=== PATIENT | male | born 1995 | race Two or more races ===

== ENCOUNTER 2017-06-28 00:07 | Observation (INO) | payer MEDICAID ==
[~2017-06-28] VITALS: Ht 160 cm; Wt 69.8 kg
[~2017-06-28 00:07] MED LIST: CLIN300C8 PO; DOCU-131 PO; OXYC1TAB7 PO
[2017-06-28 00:54] LABS: BASOPHILS # (AUTO) 0.06 x10^3/uL (0-0.1); BASOPHILS % (AUTO) 1 % (0-1); EOSINOPHILS # (AUTO) 0.11 x10^3/uL (0-0.4); EOSINOPHILS % (AUTO) 1 % (1-7); LYMPHOCYTES # (AUTO) 2.41 x10^3/uL (1-3.4); LYMPHOCYTES % (AUTO) 28 % (22-44); MD NO; MEAN CORPUSCULAR VOLUME 91.1 fL (81-97); MEAN PLATELET VOLUME 8.9 fL (7.4-10.4); MONOCYTES # (AUTO) 0.73 x10^3/uL (0.2-0.8); MONOCYTES % (AUTO) 8 % (2-9); NEUTROPHILS # (AUTO) 5.37 x10^3/uL (1.8-6.8); NEUTROPHILS % (AUTO) 62 % (42-75); PLATELET COUNT 308 x10^3/uL (130-400); RED BLOOD COUNT 4.72 x10^6/uL (4.38-5.82); RED CELL DISTRIBUTION WIDTH 14.3 % (9.4-14.8)
[2017-06-28 01:03] LABS: ANION GAP 8 mmol/L (5-15); CALCIUM 8.9 mg/dL (8.5-10.1); CHLORIDE 104 mmol/L (98-107); CREATININE 1.06 mg/dL (0.7-1.3); SALICYLATE LEVEL < 1.7 mg/dL (2.8-20.0)
[2017-06-28 01:04] LABS: ACETAMINOPHEN < 2 mcg/mL (10-30)
[2017-06-28 01:10] LABS: AMPHETAMINE SCREEN, URINE Negative (Negative); BARBITURATE SCREEN, URINE Negative (Negative); BENZODIAZEPINE SCREEN, URINE Negative (Negative); CANNABINOID SCREEN, URINE Negative (Negative); COCAINE SCREEN, URINE Negative (Negative); METHADONE SCREEN, URINE Negative (Negative); OPIATE SCREEN, URINE Negative (Negative)
[2017-06-28] MEDS ORDERED: ACETAMINOPHEN 325 MG TABLET PO PRN (04:00)
[2017-06-28] MEDS ORDERED: ONDANSETRON 2MG/ML, 2ML IVPush PRN (04:00)
[2017-06-28 04:02] VITALS: BP 122/72
[2017-06-28 08:30] VITALS: BP 117/77
[2017-06-28 14:10] VITALS: BP 114/75
[2017-06-28 20:18] VITALS: BP 124/81
[2017-06-29 02:52] VITALS: BP 109/70
[2017-06-29 08:58] VITALS: BP 109/69
[2017-06-29 15:42] VITALS: BP 111/66
[2017-06-29 19:18] VITALS: BP 118/73
[2017-06-30 02:03] VITALS: BP 115/71
[2017-06-30 07:15] VITALS: BP 120/60
[2017-06-30 13:20] VITALS: BP 127/81
[2017-06-30 20:00] VITALS: BP 129/80
[2017-07-01 01:39] VITALS: BP 100/61
[2017-07-01 06:50] VITALS: BP 108/72
[2017-07-01 14:59] VITALS: BP 126/88
[2017-07-01 19:26] VITALS: BP 108/72
[2017-07-02 02:14] VITALS: BP 96/61
[2017-07-02 08:00] VITALS: BP 111/74
== END 2017-07-02 13:52 | disposition home or self-care (01) ==
LOC: ED 01:12 → EDIP 02:03 → 4EST 02:10 → OBSVTOIN 18:36 → INTOOBSV 18:36 → 4EST 22:14
PROVIDERS: ADMIT Hospitalist; ATTEND Hospitalist
DX: R62.7 Adult failure to thrive (principal); Q90.9 Down syndrome, unspecified; I10 Essential (primary) hypertension
CPT/HCPCS: 36415; 80048; 80307; 80329; 82040; 85025; 92523; 93970; 99285; G0378; G0480

== ENCOUNTER 2018-06-19 20:20 | Inpatient (IN) | payer MEDICAID ==
[~2018-06-19] VITALS: Ht 162.6 cm; Wt 79.3 kg
--- NOTE | 2018-06-19 20:45 | NUR ---
PT HERE FOR CELULITIS OF L LEG, INNER THIGH RADIATING TO CALF. RED AND PAINFUL TO TOUCH, NO WEEPING NOTED, AT BEDSIDE, US PERFORMED. SAFETY MEASURES IN PLACE, CALL LIGHT IN REACH
[2018-06-19 21:26] LABS: MEAN CORPUSCULAR HEMOGLOBIN 32.8 pg (27.5-34.5); MEAN CORPUSCULAR HGB CONC 34.3 g/dL (33.2-36.2); MEAN CORPUSCULAR VOLUME 95.5 fL (81-97); MEAN PLATELET VOLUME 8.2 fL (7.4-10.4); PLATELET COUNT 282 x10^3/uL (130-400); RED BLOOD COUNT 4.24 x10^6/uL (4.38-5.82); RED CELL DISTRIBUTION WIDTH 13.4 % (9.4-14.8)
[2018-06-19] MEDS ORDERED: VANCOMYCIN 1,500 MG in SODIUM CHLORIDE 0.9% 250 ML IV ONE (21:30)
[2018-06-19] MEDS ORDERED: AMPICILLIN/SULBACTAM 3 GM in SODIUM CHLORIDE 0.9% 100 ML IV ONE (21:30)
[2018-06-19] MEDS ORDERED: VANCOMYCIN PER PHARMACY MC PRN (21:30)
[2018-06-19 21:38] LABS: ALANINE AMINOTRANSFERASE 18 U/L (12-78); ALBUMIN 3.4 g/dL (3.4-5.0); ANION GAP 9 mmol/L (5-15); CALCIUM 8.6 mg/dL (8.5-10.1); CHLORIDE 102 mmol/L (98-107); CREATININE 0.98 mg/dL (0.7-1.3)
[2018-06-19 21:39] LABS: MD YES
[2018-06-19 21:40] LABS: ALKALINE PHOSPHATASE 58 U/L (45-117); BILIRUBIN,TOTAL 0.7 mg/dL (0.2-1.0); TOTAL PROTEIN 7.9 g/dL (6.4-8.2)
[2018-06-19 21:41] LABS: <PLATELET ESTIMATE> ADEQUATE; <PLT MORPHOLOGY> NORMAL PLT MORPH; <RBC MORPHOLOGY> NORMAL; BAND#(MANUAL) 0.41 x10^3/uL; BANDS%(MANUAL) 3 % (0-7); LYMPH#(MANUAL) 2.97 x10^3/uL (1-3.4); LYMPHS% (MANUAL) 22 % (22-44); MONOS#(MANUAL) 1.22 x10^3/uL (0.3-2.7); MONOS% (MANUAL) 9 % (2-9); REACTIVE LYMPHS # (MANUAL) 0.14 x10^3/uL (0-0); REACTIVE LYMPHS % (MANUAL) 1 % (0-0); SEG#(MANUAL) 8.78 x10^3/uL (1.8-6.8); SEGS% (MANUAL) 65 % (42-75)
--- NOTE | 2018-06-19 21:45 | NUR ---
PT RESTING QUIETLY, MOTHER AT BEDSIDE, NO NEW COMPLAINTS
[2018-06-19] MEDS ORDERED: MORPHINE SULFATE 4 MG/ML, 1ML IVPush PRN (22:00)
--- NOTE | 2018-06-19 23:05 | NUR ---
PT C/O OF PAIN, MEDICATED PER eMAR, VANCOMYCIN RUNNING
[2018-06-19] MEDS ORDERED: MORPHINE SULFATE 4 MG/ML, 1ML ONE (23:10)
--- NOTE | 2018-06-19 23:20 | NUR ---
REPORT GIVEN TO SANTOSH CHERY
[2018-06-20] MEDS ORDERED: ENALAPRILAT 1.25 MG/ML, 2ML IVPush PRN (00:30)
[2018-06-20] MEDS ORDERED: ACETAMINOPHEN 325 MG TABLET PO PRN (00:30)
[2018-06-20] MEDS ORDERED: IBUPROFEN 600 MG TABLET PO PRN (00:30)
[2018-06-20] MEDS ORDERED: OXYcodone IR 5MG TABLET PO PRN (00:30)
[2018-06-20] MEDS ORDERED: VANCOMYCIN PER PHARMACY MC PRN (00:30)
[2018-06-20] MEDS ORDERED: DIPHENHYDRAMINE 25 MG CAPSULE PO PRN (00:30)
[2018-06-20] MEDS: SODIUM CHLORIDE 0.9% 1,000 ML IV SCH ×3 (01:00→16:38)
[2018-06-20] MEDS ORDERED: IBUPROFEN 800 MG TABLET PO PRN (01:00)
[2018-06-20] MEDS ORDERED: PHARMACOKINETIC MONITORING MC PRN (01:00)
[2018-06-20] MEDS ORDERED: SODIUM CHLORIDE 0.9% 1,000ML IVBOLUS ONE (01:00)
[2018-06-20 01:47] VITALS: BP 102/58
[2018-06-20 05:06] LABS: MEAN CORPUSCULAR HEMOGLOBIN 32.9 pg (27.5-34.5); MEAN CORPUSCULAR HGB CONC 34.3 g/dL (33.2-36.2); MEAN CORPUSCULAR VOLUME 95.9 fL (81-97); MEAN PLATELET VOLUME 8.6 fL (7.4-10.4); PLATELET COUNT 254 x10^3/uL (130-400); RED BLOOD COUNT 3.69 x10^6/uL (4.38-5.82); RED CELL DISTRIBUTION WIDTH 13.4 % (9.4-14.8)
[2018-06-20 05:17] LABS: ANION GAP 7 mmol/L (5-15); CALCIUM 8.2 mg/dL (8.5-10.1); CHLORIDE 103 mmol/L (98-107); CREATININE 1.04 mg/dL (0.7-1.3)
[2018-06-20] MEDS: AMPICILLIN/SULBACTAM 3 GM in SODIUM CHLORIDE 0.9% 100 ML IV SCH ×3 (05:29→22:05)
[2018-06-20 05:56] LABS: BASOPHILS # (AUTO) 0.03 x10^3/uL (0-0.1); BASOPHILS % (AUTO) 0 % (0-1); EOSINOPHILS # (AUTO) 0.04 x10^3/uL (0-0.4); EOSINOPHILS % (AUTO) 0 % (1-7); LYMPHOCYTES # (AUTO) 2.24 x10^3/uL (1-3.4); LYMPHOCYTES % (AUTO) 18 % (22-44); MD SCAN; MONOCYTES # (AUTO) 1.91 x10^3/uL (0.2-0.8); MONOCYTES % (AUTO) 15 % (2-9); NEUTROPHILS # (AUTO) 8.33 x10^3/uL (1.8-6.8); NEUTROPHILS % (AUTO) 66 % (42-75)
[2018-06-20 08:15] VITALS: BP 114/74
[2018-06-20] MEDS ORDERED: DIVA250T14 PO (08:51)
[2018-06-20] MEDS: SENNA/DOCUSATE TABLET PO SCH (08:59)
[2018-06-20] MEDS: ENOXAPARIN 40 MG/0.4 ML SQ SCH (08:59)
[2018-06-20 09:12] LABS: MICROSCOPIC NOT IND
[2018-06-20 09:17] LABS: CULTURE INDICATED? NO
[2018-06-20] MEDS: VANCOMYCIN 1,500 MG in SODIUM CHLORIDE 0.9% 250 ML IV SCH ×2 (11:34→23:30)
[2018-06-20 14:10] VITALS: BP 115/68
[2018-06-20 21:08] VITALS: BP 114/75
[2018-06-20] MEDS: DIVALPROEX 250 MG TAB.ER.24H PO SCH (22:04)
[2018-06-21 01:31] VITALS: BP 98/61
[2018-06-21 05:19] LABS: MEAN CORPUSCULAR HEMOGLOBIN 33.5 pg (27.5-34.5); MEAN CORPUSCULAR HGB CONC 35.1 g/dL (33.2-36.2); MEAN CORPUSCULAR VOLUME 95.5 fL (81-97); MEAN PLATELET VOLUME 8.6 fL (7.4-10.4); PLATELET COUNT 217 x10^3/uL (130-400); RED BLOOD COUNT 3.32 x10^6/uL (4.38-5.82); RED CELL DISTRIBUTION WIDTH 13.6 % (9.4-14.8)
[2018-06-21 05:30] LABS: CHLORIDE 109 mmol/L (98-107)
[2018-06-21] MEDS: SODIUM CHLORIDE 0.9% 1,000 ML IV SCH (05:34)
[2018-06-21] MEDS: AMPICILLIN/SULBACTAM 3 GM in SODIUM CHLORIDE 0.9% 100 ML IV SCH ×2 (05:34→16:38)
[2018-06-21 05:36] LABS: ANION GAP 7 mmol/L (5-15); CALCIUM 8.4 mg/dL (8.5-10.1); CREATININE 0.86 mg/dL (0.7-1.3)
[2018-06-21 05:52] LABS: BASOPHILS # (AUTO) 0.04 x10^3/uL (0-0.1); BASOPHILS % (AUTO) 0 % (0-1); EOSINOPHILS # (AUTO) 0.03 x10^3/uL (0-0.4); EOSINOPHILS % (AUTO) 0 % (1-7); LYMPHOCYTES # (AUTO) 1.88 x10^3/uL (1-3.4); LYMPHOCYTES % (AUTO) 18 % (22-44); MD SCAN; MONOCYTES # (AUTO) 1.65 x10^3/uL (0.2-0.8); MONOCYTES % (AUTO) 16 % (2-9); NEUTROPHILS # (AUTO) 6.95 x10^3/uL (1.8-6.8); NEUTROPHILS % (AUTO) 66 % (42-75)
[2018-06-21 07:06] VITALS: BP 104/69
[2018-06-21] MEDS: SENNA/DOCUSATE TABLET PO SCH (10:10)
[2018-06-21] MEDS: ENOXAPARIN 40 MG/0.4 ML SQ SCH (10:11)
[2018-06-21] MEDS: VANCOMYCIN 1,500 MG in SODIUM CHLORIDE 0.9% 250 ML IV SCH (11:35)
[2018-06-21 13:49] VITALS: BP 119/78
[2018-06-21] MEDS: DIVALPROEX 250 MG TAB.ER.24H PO SCH (20:59)
[2018-06-21] MEDS: VANCOMYCIN 1,200 MG in SODIUM CHLORIDE 0.9% 250 ML IV SCH (20:59)
[2018-06-21 21:00] VITALS: BP 118/75
[2018-06-22] MEDS: AMPICILLIN/SULBACTAM 3 GM in SODIUM CHLORIDE 0.9% 100 ML IV SCH ×3 (00:25→22:56)
[2018-06-22] MEDS: SODIUM CHLORIDE 0.9% 1,000 ML IV SCH (00:25)
[2018-06-22 03:47] VITALS: BP 126/86
[2018-06-22] MEDS: VANCOMYCIN 1,200 MG in SODIUM CHLORIDE 0.9% 250 ML IV SCH ×3 (04:36→20:30)
[2018-06-22 05:29] LABS: MEAN CORPUSCULAR HEMOGLOBIN 32.4 pg (27.5-34.5); MEAN CORPUSCULAR HGB CONC 33.7 g/dL (33.2-36.2); MEAN CORPUSCULAR VOLUME 96.2 fL (81-97); MEAN PLATELET VOLUME 8.8 fL (7.4-10.4); PLATELET COUNT 266 x10^3/uL (130-400); RED CELL DISTRIBUTION WIDTH 13.9 % (9.4-14.8)
[2018-06-22 05:31] LABS: ANION GAP 6 mmol/L (5-15); CALCIUM 8.3 mg/dL (8.5-10.1); CHLORIDE 109 mmol/L (98-107)
[2018-06-22 05:59] LABS: BASOPHILS # (AUTO) 0.08 x10^3/uL (0-0.1); BASOPHILS % (AUTO) 1 % (0-1); EOSINOPHILS # (AUTO) 0.13 x10^3/uL (0-0.4); EOSINOPHILS % (AUTO) 2 % (1-7); LYMPHOCYTES # (AUTO) 1.36 x10^3/uL (1-3.4); LYMPHOCYTES % (AUTO) 16 % (22-44); MD SCAN; MONOCYTES # (AUTO) 1.03 x10^3/uL (0.2-0.8); MONOCYTES % (AUTO) 12 % (2-9); NEUTROPHILS # (AUTO) 6.06 x10^3/uL (1.8-6.8); NEUTROPHILS % (AUTO) 70 % (42-75)
[2018-06-22 08:30] VITALS: BP 119/82
[2018-06-22] MEDS ORDERED: VANCOMYCIN PER PHARMACY MC PRN (08:30)
[2018-06-22] MEDS ORDERED: AMPICILLIN/SULBACTAM 3 GM in SODIUM CHLORIDE 0.9% 100 ML IV SCH (08:30)
[2018-06-22] MEDS ORDERED: SULFAMETH./TRIMETHOPRIM DS 800MG/160MG TABLET PO SCH (09:00)
[2018-06-22] MEDS ORDERED: AMOXICILLIN/CLAV 875-125MG TABLET PO SCH (09:00)
[2018-06-22] MEDS: ENOXAPARIN 40 MG/0.4 ML SQ SCH (10:38)
[2018-06-22] MEDS: SENNA/DOCUSATE TABLET PO SCH (10:46)
[2018-06-22 13:54] VITALS: BP 126/67
[2018-06-22] MEDS ORDERED: PHARMACOKINETIC MONITORING MC PRN (14:00)
[2018-06-22] MEDS ORDERED: VANCOMYCIN 1,200 MG in SODIUM CHLORIDE 0.9% 250 ML IV SCH (16:30)
[2018-06-22 19:51] VITALS: BP 132/92
[2018-06-22] MEDS: DIVALPROEX 250 MG TAB.ER.24H PO SCH (20:30)
[2018-06-23 01:39] VITALS: BP 116/74
[2018-06-23] MEDS: AMPICILLIN/SULBACTAM 3 GM in SODIUM CHLORIDE 0.9% 100 ML IV SCH (04:32)
[2018-06-23 05:45] LABS: ANION GAP 5 mmol/L (5-15); CALCIUM 8.7 mg/dL (8.5-10.1); CHLORIDE 109 mmol/L (98-107); CREATININE 0.81 mg/dL (0.7-1.3)
[2018-06-23 05:56] LABS: VANCOMYCIN,TROUGH 15.7 mcg/mL (5.0-10.0)
[2018-06-23] MEDS: VANCOMYCIN 1,200 MG in SODIUM CHLORIDE 0.9% 250 ML IV SCH ×2 (06:05→13:15)
[2018-06-23 07:11] LABS: BASOPHILS # (AUTO) 0.05 x10^3/uL (0-0.1); BASOPHILS % (AUTO) 1 % (0-1); EOSINOPHILS # (AUTO) 0.23 x10^3/uL (0-0.4); EOSINOPHILS % (AUTO) 3 % (1-7); LYMPHOCYTES # (AUTO) 2.02 x10^3/uL (1-3.4); LYMPHOCYTES % (AUTO) 26 % (22-44); MD NO; MEAN CORPUSCULAR HEMOGLOBIN 32.5 pg (27.5-34.5); MEAN CORPUSCULAR HGB CONC 33.6 g/dL (33.2-36.2); MEAN CORPUSCULAR VOLUME 96.6 fL (81-97); MEAN PLATELET VOLUME 8.9 fL (7.4-10.4); MONOCYTES # (AUTO) 0.99 x10^3/uL (0.2-0.8); MONOCYTES % (AUTO) 13 % (2-9); NEUTROPHILS # (AUTO) 4.54 x10^3/uL (1.8-6.8); NEUTROPHILS % (AUTO) 58 % (42-75); PLATELET COUNT 296 x10^3/uL (130-400); RED BLOOD COUNT 3.51 x10^6/uL (4.38-5.82); RED CELL DISTRIBUTION WIDTH 13.6 % (9.4-14.8)
[2018-06-23 09:10] VITALS: BP 116/78
[2018-06-23] MEDS: SENNA/DOCUSATE TABLET PO SCH (10:23)
[2018-06-23] MEDS: ENOXAPARIN 40 MG/0.4 ML SQ SCH (10:23)
[2018-06-23] MEDS ORDERED: AMPICILLIN/SULBACTAM 3 GM in SODIUM CHLORIDE 0.9% 100 ML IV SCH (16:00)
[2018-06-23] MEDS ORDERED: AMPICILLIN/SULBACTAM 3 GM in SODIUM CHLORIDE 0.9% 50 ML IV SCH (16:00)
[2018-06-23 17:06] VITALS: BP 113/78
[2018-06-23 19:44] VITALS: BP 110/77
[2018-06-23] MEDS: DIVALPROEX 250 MG TAB.ER.24H PO SCH (21:02)
[2018-06-23] MEDS: CEFAZOLIN 2,000 MG in SODIUM CHLORIDE 0.9% 50 ML IV SCH (21:02)
[2018-06-24 01:17] VITALS: BP 112/78
[2018-06-24] MEDS: CEFAZOLIN 2,000 MG in SODIUM CHLORIDE 0.9% 50 ML IV SCH ×4 (04:27→21:44)
[2018-06-24 05:54] LABS: HCT (SEDRATE) 39.4 % (39.2-51.8)
[2018-06-24 05:55] LABS: BASOPHILS # (AUTO) 0.04 x10^3/uL (0-0.1); BASOPHILS % (AUTO) 1 % (0-1); EOSINOPHILS % (AUTO) 3 % (1-7); LYMPHOCYTES # (AUTO) 1.85 x10^3/uL (1-3.4); LYMPHOCYTES % (AUTO) 27 % (22-44); MD NO; MEAN CORPUSCULAR HEMOGLOBIN 32.9 pg (27.5-34.5); MEAN CORPUSCULAR HGB CONC 33.8 g/dL (33.2-36.2); MEAN CORPUSCULAR VOLUME 97.3 fL (81-97); MEAN PLATELET VOLUME 8.1 fL (7.4-10.4); MONOCYTES # (AUTO) 0.85 x10^3/uL (0.2-0.8); MONOCYTES % (AUTO) 12 % (2-9); NEUTROPHILS # (AUTO) 3.95 x10^3/uL (1.8-6.8); NEUTROPHILS % (AUTO) 57 % (42-75); PLATELET COUNT 318 x10^3/uL (130-400); RED BLOOD COUNT 4.02 x10^6/uL (4.38-5.82); RED CELL DISTRIBUTION WIDTH 13.9 % (9.4-14.8)
[2018-06-24 06:08] LABS: ANION GAP 4 mmol/L (5-15); CHLORIDE 110 mmol/L (98-107)
[2018-06-24 06:25] LABS: CALCIUM 8.8 mg/dL (8.5-10.1); CREATININE 0.99 mg/dL (0.7-1.3)
[2018-06-24 08:45] VITALS: BP 118/75
[2018-06-24] MEDS: SENNA/DOCUSATE TABLET PO SCH (12:05)
[2018-06-24] MEDS: ENOXAPARIN 40 MG/0.4 ML SQ SCH (12:05)
[2018-06-24 13:32] VITALS: BP 116/78
[2018-06-24 19:12] VITALS: BP 116/76
[2018-06-24] MEDS: DIVALPROEX 250 MG TAB.ER.24H PO SCH (20:10)
[2018-06-25 01:10] VITALS: BP 108/73
[2018-06-25] MEDS: CEFAZOLIN 2,000 MG in SODIUM CHLORIDE 0.9% 50 ML IV SCH (05:46)
[2018-06-25 07:36] VITALS: BP 109/74
[2018-06-25] MEDS: SENNA/DOCUSATE TABLET PO SCH (09:00)
[2018-06-25] MEDS: ENOXAPARIN 40 MG/0.4 ML SQ SCH (10:06)
[2018-06-25] MEDS ORDERED: CEPHALEXIN 500 MG CAPSULE PO SCH (11:30)
[2018-06-25 13:22] VITALS: BP 118/84
[2018-06-25] MEDS ORDERED: CEPH-368 PO (13:27)
== END 2018-06-25 16:35 | disposition home or self-care (01) | DRG 872 ==
LOC: ED 22:20 → EDIP 22:21 → 4NOR 06-20 00:21 → DCLOUNGE 06-25 16:31
PROVIDERS: ADMIT Family Medicine; ATTEND Family Medicine
DX: A41.9 Sepsis, unspecified organism (principal); L03.116 Cellulitis of left lower limb; E87.1 Hypo-osmolality and hyponatremia; F88 Other disorders of psychological development; D64.9 Anemia, unspecified; R53.81 Other malaise
CPT/HCPCS: 36415; 80048; 80053; 80202; 81003; 83605; 85025; 85651; 86140; 87040; 87081; 99291; G0378; J0295; J0690; J1650; J3370; J7030; J7050